=== PATIENT | female | born 1945 ===

== ENCOUNTER 2016-11-29 07:35 | Day surgery (SDC) | payer OTHER ==
[2016-11-29] MEDS ORDERED: Lactated Ringer's 500 ML IV ONE (09:25)
[2016-11-29] MEDS ORDERED: Etomidate 20 mg/10ml Inj IV ONE (10:40)
[2016-11-29] MEDS ORDERED: Midazolam 2 MG/2 ML VIAL ONE (10:40)
[2016-11-29] MEDS ORDERED: Propofol 10 mg/ml Inj (20 ML) ONE (10:41)
[2016-11-29 11:04] VITALS: O2SAT 100
[2016-11-29 11:24] VITALS: BP 112/53; PULSE 57; RESP 18; TEMP 96.9
== END 2016-11-29 12:00 | disposition home or self-care (01) ==
LOC: H.ENDO 07:35
PROVIDERS: ATTEND Internal Medicine Gastroenterology
DX: R10.13 Epigastric pain (principal); E78.5 Hyperlipidemia, unspecified; K22.8 Other specified diseases of esophagus; K31.9 Disease of stomach and duodenum, unspecified
CPT/HCPCS: 43239; 88305; J2001; J2250; J2704; J3010; J7120

== ENCOUNTER 2016-12-13 09:36 | Day surgery (SDC) | payer OTHER ==
[2016-12-13] MEDS ORDERED: Lactated Ringer's 500 ML IV ONE (10:15)
[2016-12-13 10:48] VITALS: TEMP 97
[2016-12-13] MEDS ORDERED: Propofol 10 mg/ml Inj (20 ML) ONE (11:51)
[2016-12-13] MEDS ORDERED: Lidocaine 2% MPF (5 ml) Inj ONE (11:51)
[2016-12-13 12:31] VITALS: BP 106/47; PULSE 66; RESP 20; O2SAT 99
== END 2016-12-13 13:12 | disposition home or self-care (01) ==
LOC: H.ENDO 09:36
PROVIDERS: ATTEND Internal Medicine Gastroenterology
DX: Z12.11 Encounter for screening for malignant neoplasm of colon (principal); E78.5 Hyperlipidemia, unspecified; K62.4 Stenosis of anus and rectum; K64.8 Other hemorrhoids; K62.1 Rectal polyp
CPT/HCPCS: 45380; 88305; J2704; J7120

== ENCOUNTER 2017-01-05 09:08 | Emergency (ER) | payer MEDICAID, OTHER ==
[2017-01-05 09:13] VITALS: BMI 25.4
--- NOTE | 2017-01-05 09:38 | ED PDOC ---
HPI: Skin/Bite Injury Time Seen by Provider: 01/05/17 09:17 Chief Complaint (Nursing): Abnormal Skin Integrity Chief Complaint (Provider): rash History Per: Patient History/Exam Limitations: no limitations Onset/Duration Of Symptoms: Days (3 weeks) Current Symptoms Are (Timing): Still Present Additional Complaint(s): Itchy rash on left wrist, left forearm, and right forearm. Mild pain on the right forearm after putting alcohol on it. Saw pcp for this and given clotrimazole. Not helping. Has had same many times. No discharge from rash, dyspnea, fever, weakness. No new food, drinks, or anything different. Past Medical History Reviewed: Historical Data, Nursing Documentation, Vital Signs Vital Signs: Last Vital Signs Temp 98.0 F 01/05/17 09:14 Pulse 69 01/05/17 09:14 Resp 16 01/05/17 09:14 BP 142/69 01/05/17 09:14 Pulse Ox 100 01/05/17 09:14 - Medical History PMH: Hypercholesterolemia Denies: Chronic Kidney Disease - Surgical History Surgical History: Cholecystectomy - Family History Family History: States: Unknown Family Hx - Home Medications Home Medications: Ambulatory Orders Medication Instructions Recorded Pravastatin Sodium 40 mg PO DAILY 11/29/16 DiphenhydrAMINE [Benadryl] 25 mg PO TID PRN 5 Days cap 01/05/17 predniSONE [predniSONE Tab] 20 mg PO BID 5 Days tab 01/05/17 - Allergies Allergies/Adverse Reactions: Allergies Allergy/AdvReac Type Severity Reaction Status Date / Time FISH Allergy RASH Verified 12/13/16 10:14 Review of Systems Constitutional: Negative for: Fever, Weakness ENT: Negative for: Ear Pain, Nose Congestion, Mouth Pain, Throat Pain Cardiovascular: Negative for: Chest Pain, Edema, Light Headedness Respiratory: Negative for: Shortness of Breath Musculoskeletal: Negative for: Neck Pain, Shoulder Pain, Leg Pain, Foot Pain Skin: Positive for: Rash. Negative for: Bruising Neurological: Negative for: Weakness, Numbness Physical Exam - Reviewed Nursing Documentation Reviewed: Yes Vital Signs Reviewed: Yes - Physical Exam Appears: Positive for: Non-toxic, No Acute Distress Head Exam: Positive for: ATRAUMATIC, NORMAL INSPECTION, NORMOCEPHALIC Skin: Positive for: Rash (R forearm with two 2cm diameter rashes erythema; no dc , no fluctuance; urticarial pattern; L medial wrist with scab; L forearm with erythema nontender no scabbing; not raised) ENT: Positive for: Normal ENT Inspection Neck: Positive for: Normal, Painless ROM Cardiovascular/Chest: Positive for: Regular Rate, Rhythm Respiratory: Positive for: CNT, Normal Breath Sounds Back: Positive for: Normal Inspection. Negative for: L CVA Tenderness, R CVA Tenderness Extremity: Positive for: Normal ROM, Tenderness (R forearm rash mild; no dc). Negative for: Pedal Edema Neurologic/Psych: Positive for: Alert, Oriented - ECG O2 Sat by Pulse Oximetry: 100 Pulse Ox Interpretation: Normal - Progress ED Course And Treament: 942: Stable. Will dc with allergic reaction. AAOx3. Disposition - Clinical Impression Clinical Impression: Allergic reaction - Patient ED Disposition Is Patient to be Admitted: No Counseled Patient/Family Regarding: Diagnosis, Need For Followup, Rx Given - Disposition Referrals: [facility] - 01/07/17 Disposition: Routine/Home Disposition Time: 09:46 Condition: STABLE Additional Instructions: Return if not better in 3 days. Prescriptions: DiphenhydrAMINE [Benadryl] 25 mg PO TID PRN 5 Days cap PRN Reason: Itching / Pruritus predniSONE [predniSONE Tab] 20 mg PO BID 5 Days tab Instructions: General Allergic Reaction (ED) Forms: [facility] (Chinese) Print Language: TUNISIAN
[2017-01-05 10:18] VITALS: BP 110/78; PULSE 78; RESP 18; TEMP 97; O2SAT 98
== END 2017-01-05 10:17 | disposition home or self-care (01) ==
LOC: H.ER 09:08
DX: T78.40XA Allergy, unspecified, initial encounter (principal)

== ENCOUNTER 2017-11-26 09:26 | Day surgery (SDC) | payer OTHER ==
[2017-11-26 10:10] VITALS: BMI 26.4
[2017-11-26] MEDS ORDERED: Lactated Ringer's 500 ML IV ONE (10:30)
[2017-11-26 10:36] VITALS: TEMP 97.4
[2017-11-26] MEDS ORDERED: Propofol 10 mg/ml Inj (20 ML) ONE (10:39)
[2017-11-26 11:12] VITALS: O2SAT 99
[2017-11-26 11:13] VITALS: BP 108/58; PULSE 66; RESP 18
== END 2017-11-26 12:46 | disposition home or self-care (01) ==
LOC: H.ENDO 09:26
PROVIDERS: ATTEND Internal Medicine Gastroenterology
DX: Z12.11 Encounter for screening for malignant neoplasm of colon (principal); E78.5 Hyperlipidemia, unspecified; K64.0 First degree hemorrhoids
CPT/HCPCS: 45378; J2001; J2704; J7120

== ENCOUNTER 2018-06-25 10:58 | Emergency (ER) | payer MEDICAID, OTHER ==
[2018-06-25 11:24] VITALS: BP 126/76; RESP 18; TEMP 99
[2018-06-25 11:25] VITALS: BMI 27.5
--- NOTE | 2018-06-25 12:02 | ED PDOC ---
HPI: Abdomen Time Seen by Provider: 06/25/18 11:41 Chief Complaint (Nursing): Abdominal Pain History Per: Patient Onset/Duration Of Symptoms: Days (2) Current Symptoms Are (Timing): Still Present Severity: Mild Location Of Pain/Discomfort: Epigastric Quality Of Discomfort: Sharp Associated Symptoms: Nausea, Vomiting, Diarrhea. denies: Fever Additional Complaint(s): Epigastric abd pain assoc with NVD since last night after eating shrimp. Denies fever. denies blood in stool or vomitus Past Medical History Vital Signs: Last Vital Signs Temp 99.0 F 06/25/18 11:23 Pulse 101 H 06/25/18 11:23 Resp 18 06/25/18 11:23 BP 126/76 06/25/18 11:23 Pulse Ox 95 06/25/18 11:23 - Medical History PMH: Alzheimer's Disease, Hypercholesterolemia Denies: Chronic Kidney Disease - Surgical History Surgical History: Cholecystectomy - Family History Family History: States: Unknown Family Hx - Home Medications Home Medications: Ambulatory Orders Medication Instructions Recorded Pravastatin Sodium 40 mg PO DAILY 11/29/16 Memantine [Namenda] 1 tab PO BID 11/26/17 [id number] Ethyl Esters 1 GM 1 gm PO BID 11/26/17 [Lovaza] Omeprazole 40 mg PO DAILY 11/26/17 Famotidine [Pepcid] 20 mg PO Q12 #20 tab 06/25/18 - Allergies Allergies/Adverse Reactions: Allergies Allergy/AdvReac Type Severity Reaction Status Date / Time No Known Allergies Allergy Verified 11/26/17 10:39 Review of Systems ROS Statement: Except As Marked, All Systems Reviewed And Found Negative Constitutional: Negative for: Fever Gastrointestinal: Positive for: Nausea, Vomiting, Abdominal Pain, Diarrhea Physical Exam - Reviewed Nursing Documentation Reviewed: Yes Vital Signs Reviewed: Yes - Physical Exam Appears: Positive for: Non-toxic, No Acute Distress Head Exam: Positive for: ATRAUMATIC, NORMAL INSPECTION, NORMOCEPHALIC Skin: Positive for: Normal Color, Warm, DRY Eye Exam: Positive for: EOMI, Normal appearance, PERRL ENT: Positive for: Normal ENT Inspection Neck: Positive for: Normal, Painless ROM Cardiovascular/Chest: Positive for: Regular Rate, Rhythm Respiratory: Positive for: CNT, Normal Breath Sounds Gastrointestinal/Abdominal: Positive for: Soft, Tenderness (Mild epigastric) Back: Positive for: Normal Inspection Extremity: Positive for: Normal ROM Neurological/Psych: Positive for: Awake, Alert, Normal Tone - Laboratory Results Result Diagrams: 06/25/18 12:10 06/25/18 12:10 - ECG O2 Sat by Pulse Oximetry: 95 - Progress Re-evaluation Time: 13:41 Condition: Improved Disposition - Clinical Impression Clinical Impression: Gastritis - Patient ED Disposition Is Patient to be Admitted: No Counseled Patient/Family Regarding: Studies Performed, Diagnosis, Need For Followup, Rx Given - Disposition Referrals: Stacie Manning MD [Primary Care Provider] - Disposition Time: 13:42 Condition: FAIR Prescriptions: Famotidine [Pepcid] 20 mg PO Q12 #20 tab Instructions: Gastritis Forms: [facility] (Romanian)
[2018-06-25 12:31] LABS: BASO % 0.5 % (0.0-2.0); EOS % 0.3 % (0.0-4.0); HEMOGLOBIN 15.8 g/dL (12.0-16.0); LYMPH # 0.5 K/uL (1.0-4.3); LYMPH % 6.2 % (20.0-40.0); MEAN CELL VOLUME 92.3 fl (81.0-99.0); MEAN CORPUSCULAR HEMOGLOBIN 31.1 pg (27.0-31.0); MEAN CORPUSCULAR HGB CONC 33.7 g/dL (33.0-37.0); MEAN PLATELET VOLUME 8.9 fl (7.2-11.7); MONO # 0.3 K/uL (0.0-0.8); MONO % 3.8 % (0.0-10.0); NEUT % 89.2 % (50.0-75.0); PLATELET COUNT 184 K/uL (130-400); RBC 5.07 Mil/uL (3.80-5.20); RED CELL DISTRIBUTION WIDTH 13.3 % (11.5-14.5); WHITE BLOOD COUNT 7.9 K/uL (4.8-10.8)
[2018-06-25 12:37] LABS: ALB/GLOB RATIO 1.4 (1.0-2.1); ALBUMIN 4.5 g/dL (3.5-5.0); ALT/SGPT 55 U/L (9-52); AST/SGOT 57 U/L (14-36); BLOOD UREA NITROGEN 10 mg/dl (7-17); CALCIUM 9.1 mg/dL (8.4-10.2); GFR NON-AFRICAN AMERICAN > 60; LIPASE 65 U/L (23-300)
[2018-06-25 13:21] LABS: EOSINOPHIL 1 % (0-7); LYMPHOCYTE 11 % (20-50); MONOCYTE 5 % (0-10); NEUTROPHIL 83 % (42-75); PLATELET ESTIMATE NORMAL (NORMAL); TOTAL CELLS COUNTED 100
[2018-06-25 14:01] VITALS: PULSE 83; O2SAT 100
--- NOTE | 2018-06-26 00:32 | CARD ---
APPROVED REPORT Date of service: 06/25/2018 EKG Measurement Heart [id number] <Conclusion> Normal sinus rhythm Normal ECG
== END 2018-06-25 13:42 | disposition home or self-care (01) ==
LOC: H.ER 10:58 → SUPCPDRO 10:58 → H.ER 13:42
DX: K29.70 Gastritis, unspecified, without bleeding (principal)